=== PATIENT | female | born 1970 | race Hispanic/Latino ===

== ENCOUNTER 2023-05-09 07:49 | Emergency (ER) | payer BC, SELFPAY ==
[2023-05-09] MEDS ORDERED: Ketorolac Tromethamine 30 MG/ML VIAL ONE (08:48)
== END 2023-05-09 09:15 | disposition home or self-care (01) ==
LOC: ERS 07:49
DX: S46.012A Strain of muscle(s) and tendon(s) of the rotator cuff of left shoulder, initial encounter (principal); X50.0XXA Overexertion from strenuous movement or load, initial encounter
CPT/HCPCS: 96372; 99283; J1885

== ENCOUNTER 2023-10-28 14:45 | Observation (INO) | payer BC ==
[2023-10-28 15:39] LABS: #Eosinphils 0.1 thou/uL (0.0-0.7); #Monocytes 0.5 thou/uL (0.11-0.59); #Neutrophils 3.5 thou/uL (1.40-6.50); %Basophils 0.2 % (0.0-1.0); %Eosinophils 0.9 % (0.0-10.0); %Lymphocytes 25.1 % (21.0-51.0); %Monocytes 8.5 % (0.0-10.0); %Neutrophils 65.1 % (42.0-75.0); Hematocrit 39.8 % (36.0-47.0); Hemoglobin 13.9 g/dL (12.0-16.0); Mean Corpuscular HGB CONC 34.9 g/dL (32.0-36.0); Mean Corpuscular Hemoglobin 30.8 pg (27.0-31.0); Mean Corpuscular Volume 88.1 fl (78.0-98.0); Mean Platelet Volume 9.1 fL (7.4-10.4); Platelet Count 231 10x3/uL (130-400); RBC Distribution Width 11.8 % (11.5-14.5); Red Blood Cell (RBC) Count 4.52 mill/uL (4.20-5.40); White Blood Cell (WBC) Count 5.4 10x3/uL (4.8-10.8)
[2023-10-28 16:04] LABS: ALT (SGPT) 22 U/L (8-55); AST (SGOT) 20 U/L (5-34); Albumin 4.2 g/dL (3.5-5.0); Alkaline Phosphatase 60 U/L (40-110); Anion Gap 14 mmol/L (10-20); BUN (Urea Nitrogen) 10 mg/dL (7.0-18.7); Bilirubin, Total 0.6 mg/dL (0.2-1.2); Calc. Creatinine Clearance 0 mL/min (70-130); Calcium 9.7 mg/dL (7.8-10.44); Carbon Dioxide 30 mmol/L (22-29); Chloride 100 mmol/L (98-107); Estimated GFR 88; Globulin 3.5 g/dL (2.4-3.5); Glucose 108 mg/dL (70-105); Potassium 3.5 mmol/L (3.5-5.1); Protein, Total 7.7 g/dL (6.0-8.3); Sodium 140 mmol/L (136-145)
[2023-10-28] MEDS ORDERED: Aspirin Chewable 81 MG TAB ONE (16:06)
[2023-10-28 16:08] LABS: Troponin I Less than 0.010 ng/mL (< 0.028)
[2023-10-28] MEDS ORDERED: Nitroglycerin 0.4 MG TAB (25 Tab Bottle) SL PRN (16:57)
[2023-10-28 20:00] LABS: Troponin I Less than 0.010 ng/mL (< 0.028)
[2023-10-28 21:28] VITALS: BMI 25.3
[2023-10-28] MEDS: Atorvastatin Calcium 40 MG TAB PO SCH (21:38)
[2023-10-28] MEDS: Famotidine/PF 20 mg/2ml Vial SLOW IVP SCH (21:38)
[2023-10-28] MEDS: Enoxaparin 40 MG (0.4 mL) SYRINGE SC SCH (21:38)
[2023-10-29 04:52] LABS: Hemoglobin A1c 5.8 % (4.0-6.0)
[2023-10-29 05:33] LABS: Cardiac Risk 3.7 (Less than 4.5)
[2023-10-29] MEDS: Acetaminophen 325 MG TAB PO PRN (08:17)
[2023-10-29] MEDS: Aspirin 81 mg Enteric Coated Tablet PO SCH (09:00)
[2023-10-29] MEDS: Hydrochlorothiazide 25 MG TAB PO SCH (09:00)
[2023-10-29] MEDS: Lisinopril 10 MG TAB PO SCH (09:00)
[2023-10-29] MEDS ORDERED: Regadenoson 0.4 MG/5 ML SYRINGE ONE (09:56)
[2023-10-29] MEDS ORDERED: ADENOSINE 60 MG/20 ML SDV ONE (10:38)
[2023-10-29 12:55] VITALS: BP 114/68; TEMP 97.9
[2023-10-29] MEDS: Enoxaparin 40 MG (0.4 mL) SYRINGE SC SCH (13:34)
== END 2023-10-29 14:04 | disposition home or self-care (01) ==
LOC: ERS 14:45 → 2SW 16:33
PROVIDERS: ADMIT Internal Medicine; ATTEND Internal Medicine
DX: R07.9 Chest pain, unspecified (principal); I10 Essential (primary) hypertension; Z90.49 Acquired absence of other specified parts of digestive tract
CPT/HCPCS: 36415; 71045; 71046; 71275; 78452; 80053; 80061; 83036; 83880; 84145; 84484; 85025; 85379; 93005; 93017; 94760; 96372; 96374; A9502; G0378; J0153; J1650; J2785; S0028